=== PATIENT | female | born 1985 | race Caucasian/White ===

== ENCOUNTER 2017-10-26 20:21 | Emergency (ER) | payer MEDICAID ==
[~2017-10-26] VITALS: Ht 172.7 cm; Wt 68.0 kg
--- NOTE | 2017-10-26 20:36 | NUR ---
Dr. Marquez at bedside for MSE.
--- NOTE | 2017-10-26 20:40 | NUR ---
Patient ambulated to ER with steady gait, c/o pain, tenderness, numbness on 2nd left toe, reports [place] and may have stepped on something or a bug may have bit her.
--- NOTE | 2017-10-26 20:40 | NUR ---
Note [email or web address] antonio in EDM - 10/26/17 at 2103 by CAITY Patient ambulated to ER with steady gait, c/o pain, tenderness, numbness on 2nd left toe, [place] may have [place] on something or a bug may have bit her.
--- NOTE | 2017-10-26 20:50 | NUR ---
Xray at bedside.
--- NOTE | 2017-10-26 21:15 | NUR ---
Patient discharged to home in stable conditon. Written and verbal after care instructions given. Patient verbalizes understanding of instructions. Patient ambulated out of ER with steady gait, no acute signs of distress, VSS, all belongings taken.
[2017-10-26] MEDS: LORAZEPAM 2 MG/1 ML VIAL IV ONE (21:18)
[2017-10-26 21:19] VITALS: BP 99/66
== END 2017-10-26 21:15 | disposition home or self-care (01) ==
LOC: ER 20:26
DX: L03.116 Cellulitis of left lower limb (principal); Z88.1 Allergy status to other antibiotic agents; Z91.013 Allergy to seafood
CPT/HCPCS: 73630; A4663

== ENCOUNTER 2018-04-20 11:55 | Emergency (ER) | payer MEDICAID ==
[~2018-04-20] VITALS: Ht 172.7 cm; Wt 65.8 kg
--- NOTE | 2018-04-20 12:14 | NUR ---
PT IS IN ROOM #2B. EVALUATED THE PT.
--- NOTE | 2018-04-20 12:23 | NUR ---
PT WAS D/C TO HOME. D/C INSTRUCTIONS GIVEN TO THE PT.
[2018-04-20 12:24] VITALS: BP 128/78
== END 2018-04-20 12:25 | disposition home or self-care (01) ==
LOC: ER 11:57
DX: B35.3 Tinea pedis (principal); Z88.1 Allergy status to other antibiotic agents; Z91.013 Allergy to seafood
CPT/HCPCS: A4663

== ENCOUNTER 2018-08-07 15:00 | Emergency (ER) | payer MEDICAID ==
[~2018-08-07] VITALS: Ht 172.7 cm; Wt 65.8 kg
--- NOTE | 2018-08-07 15:35 | NUR ---
Patient discharged to home in stable conditon & brisk steady gait. Written and verbal after care instructions given to patient. Patient verbalizes understanding of instructions.
== END 2018-08-07 15:36 | disposition home or self-care (01) ==
LOC: ER 15:00
DX: S06.0X0A Concussion without loss of consciousness, initial encounter (principal); Z88.1 Allergy status to other antibiotic agents; Z91.013 Allergy to seafood; W22.8XXA Striking against or struck by other objects, initial encounter; Y93.89 Activity, other specified; Y92.89 Other specified places as the place of occurrence of the external cause; Y99.8 Other external cause status
CPT/HCPCS: 70450; A4663

== ENCOUNTER 2019-06-13 00:25 | Emergency (ER) | payer BC, MEDICAID, OTHER ==
[~2019-06-13] VITALS: Ht 172.7 cm; Wt 67.1 kg
[2019-06-13 01:23] LABS: BASOPHILS % (AUTO) 0.4 % (0.0-2.0); EOSINOPHILS # (AUTO) 0.1 K/uL (0.0-0.7); EOSINOPHILS % (AUTO) 1.2 % (0.0-7.0); HEMATOCRIT 41.5 % (31.2-41.9); HEMOGLOBIN 14.2 g/dL (10.9-14.3); LYMPHOCYTES # (AUTO) 1.6 K/uL (20.0-40.0); MEAN CORPUSCULAR HEMOGLOBIN 33.7 uug (24.7-32.8); MEAN CORPUSCULAR HGB CONC 34 g/dL (32.3-35.6); MEAN CORPUSCULAR VOLUME 98.1 fL (75.5-95.3); MONOCYTES # (AUTO) 0.3 K/uL (2.0-10.0); MONOCYTES % (AUTO) 6.4 % (0.0-11.0); NEUTROPHILS # (AUTO) 2.9 K/uL (1.8-8.9); PLATELET COUNT (AUTO) 209 K/uL (179-408); RED BLOOD CELL COUNT(AUTO) 4.23 MIL/uL (3.63-4.92); WHITE BLOOD COUNT (AUTO) 4.8 K/uL (3.8-11.8)
[2019-06-13 01:36] LABS: BILIRUBIN,DIRECT 0.1 mg/dL (0.0-0.2); BILIRUBIN,TOTAL 0.2 mg/dL (0.2-1.0); CREATININE 0.6 mg/dL (0.6-1.3); POTASSIUM 3.5 mmol/L (3.5-5.1); TOTAL PROTEIN, SERUM 7.4 g/dL (6.4-8.2)
[2019-06-13] MEDS ORDERED: IV NS 1000 ML 1,000 ML IV ONE (02:00)
[2019-06-13] MEDS ORDERED: MAGNESIUM SULFATE/D5W 200 ML ONE (02:07)
[2019-06-13] MEDS: MAGNESIUM SULFATE/D5W 100 ML IV SCH ×2 (02:14→02:46)
--- NOTE | 2019-06-13 02:45 | NUR ---
PATIENT LAYING ON GURNY WITH NO DISTRESS NOTED.
[2019-06-13] MEDS ORDERED: POTASSIUM CHLORIDE 20 MEQ TAB.PRT.SR ONE (02:55)
[2019-06-13 02:58] LABS: *URINE HCG, QUAL NEGATIVE (NEGATIVE)
[2019-06-13] MEDS ORDERED: POTASSIUM CHLORIDE 20 MEQ TAB.PRT.SR PO ONE (03:00)
--- NOTE | 2019-06-13 03:22 | NUR ---
IV removed. Catheter intact and site benign. Pressure and 4x4 gauze applied to site. No bleeding noted.
--- NOTE | 2019-06-13 03:30 | NUR ---
Patient discharged to home in stable conditon. Written and verbal after care instructions given. Patient verbalizes understanding of instructions. WALKED OUT OF ER WITH NO DISTRESS NOTED.
[2019-06-13 03:31] VITALS: BP 110/68
== END 2019-06-13 03:31 | disposition home or self-care (01) ==
LOC: ER 00:27
DX: E86.0 Dehydration (principal); M79.10 Myalgia, unspecified site; Z88.1 Allergy status to other antibiotic agents; Z91.013 Allergy to seafood
CPT/HCPCS: 36415; 80048; 80076; 84443; 84703; 85025; 93005; 96365; 96366; 99284; J3475; A4663; J7030

== ENCOUNTER 2021-10-27 21:35 | Emergency (ER) | payer BC, OTHER ==
[~2021-10-27] VITALS: Ht 172.7 cm; Wt 68.0 kg
--- NOTE | 2021-10-27 21:48 | NUR ---
pt in room 4a c/o of c/p.
[2021-10-27 22:02] LABS: HEMATOCRIT 38.6 % (31.2-41.9); MEAN CORPUSCULAR HEMOGLOBIN 34.7 uug (24.7-32.8); MEAN CORPUSCULAR VOLUME 97.8 fL (75.5-95.3); PLATELET COUNT (AUTO) 248 K/uL (179-408)
--- NOTE | 2021-10-27 22:13 | NUR ---
Dr. Gomez in room for MEKHI.
[2021-10-27 22:17] LABS: ALANINE AMINOTRANSFERASE 31 U/L (14-59); ALKALINE PHOSPHATASE 79 U/L (50-136); ASPARTATE AMINOTRANSFERASE 20 U/L (15-37); BILIRUBIN,DIRECT 0.1 mg/dL (0.0-0.2); BILIRUBIN,TOTAL 0.2 mg/dL (0.2-1.0); CARBON DIOXIDE 29 mmol/L (21-32); CREATININE 0.9 mg/dL (0.6-1.3); GLUCOSE 114 mg/dL (74-106); TOTAL PROTEIN, SERUM 7.2 g/dL (6.4-8.2); UREA NITROGEN, BLOOD 8 mg/dL (7-18)
[2021-10-27 22:57] LABS: CHLORIDE 107 mmol/L (98-107); POTASSIUM 4.1 mmol/L (3.5-5.1)
[2021-10-27 23:17] LABS: *URINE HCG, QUAL NEGATIVE (NEGATIVE)
[2021-10-28] MEDS ORDERED: IBUP-1955 PO (00:19)
--- NOTE | 2021-10-28 00:45 | NUR ---
Patient discharged to home in stable condition. Written and verbal after care instructions given. Patient verbalizes understanding of instructions. Stressed follow up or return to ER for worsening s/s.
[2021-10-28 00:47] VITALS: BP 110/62
== END 2021-10-28 00:47 | disposition home or self-care (01) ==
LOC: ER 21:41
DX: R07.9 Chest pain, unspecified (principal); R00.1 Bradycardia, unspecified; Z88.0 Allergy status to penicillin; Z91.013 Allergy to seafood
CPT/HCPCS: 36415; 71045; 84484; 84703; 85025; 93005; A4663

== ENCOUNTER 2022-02-16 11:23 | Emergency (ER) | payer OTHER ==
[~2022-02-16] VITALS: Ht 175.3 cm; Wt 77.6 kg
[~2022-02-16 11:23] MED LIST: IBUP-1955 PO
[2022-02-16 12:24] LABS: CARBON DIOXIDE 27 mmol/L (21-32); CHLORIDE 105 mmol/L (98-107); CREATININE 0.9 mg/dL (0.6-1.3); GLUCOSE 123 mg/dL (74-106); POTASSIUM 3.8 mmol/L (3.5-5.1); UREA NITROGEN, BLOOD 12 mg/dL (7-18)
[2022-02-16 12:25] LABS: HEMATOCRIT 40.5 % (31.2-41.9); MEAN CORPUSCULAR HEMOGLOBIN 34.3 uug (24.7-32.8); MEAN CORPUSCULAR VOLUME 98.4 fL (75.5-95.3); PLATELET COUNT (AUTO) 245 K/uL (179-408)
[2022-02-16 12:33] LABS: ALANINE AMINOTRANSFERASE 20 U/L (14-59); ALKALINE PHOSPHATASE 76 U/L (50-136); ASPARTATE AMINOTRANSFERASE 26 U/L (15-37); BILIRUBIN,DIRECT 0.1 mg/dL (0.0-0.2); BILIRUBIN,TOTAL 0.4 mg/dL (0.2-1.0); TOTAL PROTEIN, SERUM 7.6 g/dL (6.4-8.2)
[2022-02-16 12:40] LABS: *URINE HCG, QUAL NEGATIVE (NEGATIVE)
--- NOTE | 2022-02-16 14:29 | NUR ---
DR. BESS DISCHARGED PATIENT WITH AFTER CARE INSTRUCTIONS IN STABLE CONDITION.
[2022-02-16 14:30] VITALS: BP 110/59
== END 2022-02-16 14:31 | disposition home or self-care (01) ==
LOC: ER 11:24
DX: R42 Dizziness and giddiness (principal); R07.9 Chest pain, unspecified; Z20.822 Contact with and (suspected) exposure to COVID-19; Z80.8 Family history of malignant neoplasm of other organs or systems; Z88.0 Allergy status to penicillin; Z91.013 Allergy to seafood; F41.9 Anxiety disorder, unspecified
CPT/HCPCS: 36415; 71045; 84484; 84703; 85025; 93005; A4663